=== PATIENT | male | born 1930 | race Caucasian/White ===

== ENCOUNTER 2017-03-13 12:44 | Inpatient (IN) | payer MEDICARE ==
[~2017-03-13] VITALS: Ht 182.9 cm; Wt 73.5 kg
[~2017-03-13 12:44] MED LIST: BAYER CHEWABLE81 MG PO; BENAZEPRIL-HCTZ1 TA4 PO; CYCLOBENZAPRINE10 MG PO; FLOMAX0.4 MG PO; HYDROCODONE-APA1 TAB PO; LASIX20 MG PO; NAMENDA10 MG PO; POTASSIUM99 M1 PO; SEROQUEL25 MG PO; ULTRAM50 MG PO; ZESTORETIC 20-1 EACH PO; ZYRTEC10 MG PO
[2017-03-13 13:37] LABS: BASOPHILS 0.2 % (0-2); EOSINOPHILS 0.3 % (0-7); HEMATOCRIT 41.9 % (42.0-54.0); HEMOGLOBIN 14.1 g/dL (13.5-17.5); IMMATURE GRANULOCYTES 0.2 % (0-5); LYMPHOCYTES 8.3 % (15-50); MCH 32.2 pg (26.0-34.0); MCHC 33.7 g/dL (31.0-37.0); MCV 95.7 fL (80.0-100.0); MEAN PLATELET VOLUME 10.3 fL (7.4-10.4); MONOCYTES 9.4 % (2-11); NEUTROPHILS 81.6 % (40-80); RBC 4.38 10x6/uL (4.20-6.10); WBC 13.1 10x3/uL (4.8-10.8)
[2017-03-13 13:42] LABS: PLATELET COUNT 186 10x3/uL (130-400)
[2017-03-13 14:11] LABS: ALBUMIN 3.9 g/dL (3.4-5.0); ALKALINE PHOSPHATASE 66 U/L (46-116); ALT (SGPT) 24 U/L (10-68); BILIRUBIN - TOTAL 0.97 mg/dL (0.2-1.3); CALC OSMOLALITY 263 mosm/kg (275-300); CALCIUM 8.6 mg/dL (8.5-10.1); CARBON DIOXIDE 27.8 mmol/L (21.0-32.0); CHLORIDE - SERUM 100 mmol/L (98-107); CREATININE - SERUM 1.6 mg/dL (0.6-1.3); GLUCOSE 109 mg/dL (74-106); POTASSIUM - SERUM 3.9 mmol/L (3.5-5.1); PROTEIN - SERUM 7.2 g/dL (6.4-8.2); SODIUM 129 mmol/L (136-145); UREA NITROGEN 23 mg/dL (7-18); eGFR NON AFRICAN AMERICAN 43 mL/min (90-120)
[2017-03-13 14:26] LABS: CHOL - HDL RATIO 4.2 ratio (2.3-4.9); CHOLESTEROL, TOTAL 200 mg/dL (0-200); CKMB 1.2 U/L (0.0-3.6); CREATINE KINASE 74 UL (21-232); HDL CHOLESTEROL 48 mg/dL (32-96); LDL CHOLESTEROL 141 mg/dL (0-100); LDL-HDL RATIO 2.9 ratio (1.5-3.5); TRIGLYCERIDE 57 mg/dL (30-200)
[2017-03-13 14:27] LABS: TROPONIN-I < 0.017 ng/mL (0.000-0.060)
--- NOTE | 2017-03-13 16:00 | NUR ---
RECEIVED TO ROOM 2207 VIA STRETCHER FROM ER. AT BEDSIDE. A/O TO SELF ONLY. REPORTS ADVANCED ALZHEIMERS IN PATIENT. SKIN IS INTACT WITHOUT REDNESS. NO NEEDS NOTED.
[2017-03-13 16:24] VITALS: BP 123/74; BMI 22.0
[2017-03-13] MEDS ORDERED: ATIVAN0.5 MG PO (16:53)
[2017-03-13] MEDS ORDERED: TEMAZEPAM30 MG PO (16:54)
--- NOTE | 2017-03-13 18:22 | NUR ---
COMPLETED CONTRAST WITH 'S ASSISTANCE. NO CHANGES NOTED.
--- NOTE | 2017-03-13 19:30 | NUR ---
REC'D IN BED AWAKE AND ALERT. RESP EVEN AND UNLABORED WITH NO DISTRESS NOTED.CAN EXPRESS NEEDS AND WANTS. ASSESSMENT COMPLETED. AT BEDSIDE. C/L IN REACH AT BEDSIDE.
[2017-03-13 20:00] VITALS: BP 120/60
[2017-03-14] VITALS: BP 111/62
--- NOTE | 2017-03-14 01:14 | NUR ---
RESTING WELL AT THIS TIME WITH AT BEDSIDE. NO C/O NOTED AT THIS TIME. C/L AT BEDSIDE.
--- NOTE | 2017-03-14 02:00 | NUR ---
PT IN BED WITH NO NEEDS AT THIS TIME. VISITOR IS AT THE BEDSIDE. SIDE RAILS X 2. BED IS LOW. CALL LIGHT IN REACH.
[2017-03-14 04:00] VITALS: BP 133/60
[2017-03-14 06:34] LABS: BASOPHILS 0.2 % (0-2); EOSINOPHILS 0.5 % (0-7); HEMATOCRIT 38.4 % (42.0-54.0); HEMOGLOBIN 12.7 g/dL (13.5-17.5); IMMATURE GRANULOCYTES 0.2 % (0-5); LYMPHOCYTES 14.4 % (15-50); MCH 31.7 pg (26.0-34.0); MCHC 33.1 g/dL (31.0-37.0); MCV 95.8 fL (80.0-100.0); MEAN PLATELET VOLUME 9.5 fL (7.4-10.4); MONOCYTES 14.1 % (2-11); NEUTROPHILS 70.6 % (40-80); RBC 4.01 10x6/uL (4.20-6.10); RDW 13.8 % (11.5-14.5); WBC 11.4 10x3/uL (4.8-10.8)
[2017-03-14 06:46] LABS: PLATELET COUNT 146 10x3/uL (130-400)
[2017-03-14 06:59] LABS: ALBUMIN 3.2 g/dL (3.4-5.0); ANION GAP 11.2 mmol/L (8-16); BILIRUBIN - TOTAL 2.18 mg/dL (0.2-1.3); CALCIUM 8.2 mg/dL (8.5-10.1); CARBON DIOXIDE 27.6 mmol/L (21.0-32.0); CREATININE - SERUM 1.5 mg/dL (0.6-1.3); POTASSIUM - SERUM 3.8 mmol/L (3.5-5.1); PROTEIN - SERUM 6.4 g/dL (6.4-8.2); TROPONIN-I 0.025 ng/mL (0.000-0.060)
--- NOTE | 2017-03-14 07:00 | NUR ---
REPORT RECIEVED ASSUMED CARE. PATIENT IN BED WITH IV INTACT. NO COMPLAINTS AT THIS TIME. CALL LIGHT WITHIN REACH. FAMILY AT BEDSIDE.
[2017-03-14 08:17] VITALS: BP 133/55
--- NOTE | 2017-03-14 08:30 | NUR ---
PATIENT IN BED WITH NO COMPLAINTS. ASSESSMENT COMPLETE, VS STABLE. IV INTACT. FAMILY AT BEDSIDE. CALL LIGHT WITHIN REACH.
--- NOTE | 2017-03-14 10:06 | NUR ---
Patient Name: BUTCH PIEDRA Admission Status: ER Accout number: [id number] Admission Date: 03-13-2017 : 1930 Admission Diagnosis: Attending: JIM Current LOS: 1 Anticipated DC Date: Planned Disposition: Home with Hospice Primary Insurance: [employer] PPO [facility] Discharge Planning Comments: CM met with patient to assess discharge planning needs. Patient is a current patient with [facility]. Patient's Lane is at bedside stated that he is in late stages of lymphoma with Alzheimer's. The patient has oxygen at night, walker and wheelchair. Patient plans to return home with Hospice [facility]. PCP: Royal Nagel on [address] [phone] Media Senior Recruiter: Moni Briggs * Is the patient Alert and Oriented? Yes 0 * How many steps to enter\exit or inside your home? 0 0 * PCP ROYAL 0 * [facility] 0 * Preadmission Environment Home with Family 0 * ADLs Total Dependent 0 * Equipment Oxygen Walker Wheelchair 0 * List name and contact numbers for known caregivers / representatives who currently or will assist patient after discharge: LANE () [phone] 0 * Community resources currently utilized [facility]osp[facility] 0 * Please name any agencies selected above. [facility] 0 * Additional services required to return to the preadmission environment? No 0 * Can the patient safely return to the preadmission environment? Yes 0 * Has this patient been hospitalized within the prior 30 days at any hospital? No 0 Grand Total: 0
--- NOTE | 2017-03-14 11:00 | NUR ---
PATIENT SITTING UP IN WC AT THIS TIME. FAMILY AT SIDE. CALL LIGHT WITHIN REACH.
[2017-03-14 12:03] VITALS: BP 110/67
[2017-03-14 12:54] LABS: APPEARANCE CLEAR (CLEAR); BACTERIA FEW /hpf (NONE SEEN); BILIRUBIN NEGATIVE (NEGATIVE); COLOR YELLOW (YELLOW); EPITHELIAL CELLS RARE /hpf (0-5); GLUCOSE NEGATIVE (NEGATIVE); KETONE SMALL mg/dL (NEGATIVE); LEUKOCYTE ESTERASE NEGATIVE (NEGATIVE); NITRITE NEGATIVE (NEGATIVE); PROTEIN NEGATIVE (NEGATIVE); RED CELLS - URINE 0-5 /hpf (0-5); UROBILINOGEN NORMAL (NORMAL)
[2017-03-14 14:42] VITALS: Ht 182.9 cm; Wt 73.5 kg
--- NOTE | 2017-03-14 15:04 | CN ---
PATIENT NAME:BUTCH PIEDRA MEDICAL RECORD: [id number] : [birth year] LOCATION:D.[facility] ADMIT DATE: 03/13/17 ACCOUNT: [id number] CONSULTING PHYSICIAN: ZHANNA PRADO MD REFERRING PHYSICIAN: RUBY ALVARADO MD DATE OF CONSULTATION: 03/13/2017 CHIEF COMPLAINT: Chest pain. HISTORY OF PRESENT ILLNESS: The patient has dementia and can give me almost no history. His states that he is having abdominal pain and he denies this and says that he is having chest pain. I am unable to really get any review of systems from him due to his dementia. Symptoms presented 1 hour prior to presentation to the Emergency Room. It is unknown what aggravates and what alleviates the symptoms as they are difficult to characterize. REVIEW OF SYSTEMS: From the chart. It is really unobtainable due to the patient's impaired ability to communicate. He has been having chest pain. He currently denies abdominal pain. The patient does have dementia. PAST MEDICAL AND SURGICAL HISTORY: Dementia, Alzheimer disease, altered mental status, fall, closed fracture of the leg, DVT, postop wound infection of the right ankle and hypertension. FAMILY HISTORY: Has been reviewed and is not pertinent. SOCIAL HISTORY: Negative for alcohol or tobacco use. HOME MEDICINES: Lasix, lisinopril, Flomax, Namenda, Megace and vitamin B12. ALLERGIES: PENICILLIN. KUB have been reviewed. I am going to order a CT of the abdomen and pelvis. PHYSICAL EXAMINATION: GENERAL: The patient does not appear acutely ill. He does not appear chronically ill. VITAL SIGNS: Reviewed. EARS: External ears appear normal. EYES: Extraocular movements are intact. NECK: Trachea is midline. CHEST: No intercostal retractions. PULMONARY: Nonlabored, no stridor. ABDOMEN: Really nontender. GENITOURINARY: No incarcerated inguinal hernias. PSYCHIATRIC: Anxious affect. NEUROLOGIC: There is evidence of loss of higher cortical function. He does not follow commands very well. BACK: No thoracic kyphosis. LYMPHATICS: No lymphangitic streaking of the exposed extremities. KUB has been examined. It is, I think, pretty equivocal. IMPRESSION: Chest pain, although been consulted for a possible small-bowel obstruction. CONSULT REPORT [id number] BUTCH PIEDRA PLAN: Serial abdominal examinations. CT of the abdomen and pelvis with IV and oral contrast. TRANSINT:[id number] Voice Confirmation ID: [id number] DOCUMENT ID: [id number] ZHANNA PRADO MD at 1504 CC: [id number] DICTATION DATE: 03/13/171709 SCHOOL OFFICE ASSISTANT: 03/13/172002 ADM IN [facility] [address] [id number]
--- NOTE | 2017-03-14 15:51 | NUR ---
PATIENT IN BED WITH NO COMPLAINTS OF PAIN. IV INTACT. CALL LIGHT WITHIN REACH.
[2017-03-14 16:14] VITALS: BP 123/58
[2017-03-14 20:00] VITALS: BP 135/69
[2017-03-15] VITALS (10 sets, daily range): BP systolic 109–143; BP diastolic 52–76
--- NOTE | 2017-03-15 01:35 | NUR ---
APPLIED SCDS TO BILATERAL LEGS
[2017-03-15 05:48] LABS: BASOPHILS 0.3 % (0-2); EOSINOPHILS 2.1 % (0-7); HEMATOCRIT 35.7 % (42.0-54.0); HEMOGLOBIN 12.2 g/dL (13.5-17.5); IMMATURE GRANULOCYTES 0.1 % (0-5); LYMPHOCYTES 21.1 % (15-50); MCH 32.5 pg (26.0-34.0); MCHC 34.2 g/dL (31.0-37.0); MCV 95.2 fL (80.0-100.0); MEAN PLATELET VOLUME 9.6 fL (7.4-10.4); MONOCYTES 11.1 % (2-11); NEUTROPHILS 65.3 % (40-80); PLATELET COUNT 141 10x3/uL (130-400); RBC 3.75 10x6/uL (4.20-6.10); RDW 13.9 % (11.5-14.5); WBC 7.7 10x3/uL (4.8-10.8)
[2017-03-15 06:13] LABS: ALBUMIN 2.9 g/dL (3.4-5.0); ANION GAP 12.9 mmol/L (8-16); BILIRUBIN - TOTAL 1.4 mg/dL (0.2-1.3); CARBON DIOXIDE 22.5 mmol/L (21.0-32.0); CREATININE - SERUM 1.4 mg/dL (0.6-1.3); POTASSIUM - SERUM 3.4 mmol/L (3.5-5.1); PROTEIN - SERUM 5.8 g/dL (6.4-8.2)
--- NOTE | 2017-03-15 08:03 | NUR ---
SCHEDULED MEDICATIONS ADMINISTERED AT THIS TIME. PT REMAINS NPO FOR SURGERY. AT BEDSIDE. ASSESSMENT PERFORMED PER FLOWSHEET. CALL LIGHT IN REACH. WILL CONTINUE WITH PLAN OF CARE.
--- NOTE | 2017-03-15 12:05 | NUR ---
22G IV SITED TO PT'S RIGHT FOREARM X1 ATTEMPT. EXISTING IV LEAKING AROUND INSERTION SITE. REMOVED WITH CATH TIP INTACT. FAMILY REMAINS AT BEDSIDE AND PT REMAINS NPO FOR SURGERY. CALL LIGHT IN REACH, WILL CONTINUE WITH PLAN OF CARE.
--- NOTE | 2017-03-15 13:00 | HP ---
PATIENT: BUTCH PIEDRA MEDICAL RECORD: [id number] ACCOUNT: [id number] LOCATION:D.MS [place] : [birth year] ADMISSION DATE: 03/13/17 HISTORY AND PHYSICAL EXAMINATION CHIEF COMPLAINT: Chest pain. I have personally reviewed the CT scan report. The patient has gallstones. He does not have a bowel obstruction. I think it is very likely that the gallstones are causing his chest pain. The risks, possible complications, alternatives to laparoscopic cholecystectomy were explained to the patient and his family. They elected to proceed. The discussion specifically included, but was not limited to, bleeding requiring an emergency reoperation, infection, intestinal injury as well as common bile duct injury. Nothing aggravates. Nothing alleviates. Symptoms are nonradiating except up into the chest. An abdominal ultrasound is pending. REVIEW OF SYSTEMS: Currently, no nausea and vomiting, no fever or chills, no shortness of breath, no headache. Positive for chest pain. Review of systems is negative other than as is described above. For current medications, past medical and surgical history, social history and family history, please see the chart. PHYSICAL EXAMINATION: GENERAL: The patient does not appear acutely ill. He does not appear chronically ill. VITAL SIGNS: Reviewed. EARS: External ears appear normal. EYES: Extraocular movements are intact. NECK: Trachea is midline. CHEST: No intercostal retractions. PULMONARY: Nonlabored, no stridor. ABDOMEN: Nontender. EXTREMITIES: No peripheral cyanosis. INTEGUMENT: No rash, no ulcerations. PSYCHIATRIC: Normal affect. NEUROLOGIC: There is evidence of loss of higher cortical function. BACK: No thoracic kyphosis. LYMPHATIC: No lymphangitic streaking of the exposed extremities. IMPRESSION: Chest pain likely due to symptomatic gallstones. PLAN: Continue to hold the Eliquis that he has been on. Today is Tuesday. His last dose of Eliquis was on Tuesday. I will plan for laparoscopic cholecystectomy, intraoperative cholangiography and possible liver biopsy tomorrow. TRANSINT:[id number] Voice Confirmation ID: [id number] DOCUMENT ID: [id number] HISTORY AND PHYSICAL [id number] TADEORANDEEZHANNA LOCKWOOD MD at 1300 CC: [id number] DICTATION DATE: 03/14/17 9009 PETROPHYSICIST: 03/15/17 0033 ADM IN [facility] [address] [id number]
--- NOTE | 2017-03-15 13:17 | NUR ---
PRE OPERATIVE MEDICATIONS ADMINISTERED AT THIS TIME.
--- NOTE | 2017-03-15 14:44 | NUR ---
TAKEN TO SURGERY AT THIS TIME. WILL MONITOR PT WHEN HE RETURNS.
--- NOTE | 2017-03-15 17:25 | NUR ---
REPORT RECEIVED FROM SABINO GONZALES IN PACU AT THIS TIME.
--- NOTE | 2017-03-15 17:38 | NUR ---
BACK FROM SURGERY AT THIS TIME. VITAL SIGNS STABLE. WILL CONTINUE WITH PLAN OF CARE.
--- NOTE | 2017-03-15 17:48 | NUR ---
ATTEMPTED TO CALL PT'S X2 ATTEMPTS.
--- NOTE | 2017-03-15 17:53 | NUR ---
PRN NORCO ADMINISTERED PER ORDER FOR PAIN. FOUND PT'S AND DAUGHTER IN WAITING ROOM AND LET THEM KNOW PT WAS BACK TO ROOM FROM SURGERY.
[2017-03-16] VITALS: BP 112/61
[2017-03-16 06:22] LABS: BASOPHILS 0.1 % (0-2); EOSINOPHILS 0 % (0-7); HEMATOCRIT 36.8 % (42.0-54.0); HEMOGLOBIN 12.3 g/dL (13.5-17.5); IMMATURE GRANULOCYTES 0.2 % (0-5); LYMPHOCYTES 7.1 % (15-50); MCH 31.8 pg (26.0-34.0); MCHC 33.4 g/dL (31.0-37.0); MCV 95.1 fL (80.0-100.0); MEAN PLATELET VOLUME 9.5 fL (7.4-10.4); MONOCYTES 6.7 % (2-11); NEUTROPHILS 85.9 % (40-80); PLATELET COUNT 147 10x3/uL (130-400); RBC 3.87 10x6/uL (4.20-6.10); RDW 13.8 % (11.5-14.5)
[2017-03-16 06:23] LABS: WBC 13.5 10x3/uL (4.8-10.8)
[2017-03-16 06:49] LABS: ALBUMIN 2.8 g/dL (3.4-5.0); ANION GAP 15.8 mmol/L (8-16); BILIRUBIN - TOTAL 0.8 mg/dL (0.2-1.3); CALCIUM 7.9 mg/dL (8.5-10.1); CARBON DIOXIDE 20.6 mmol/L (21.0-32.0); CREATININE - SERUM 1.6 mg/dL (0.6-1.3); POTASSIUM - SERUM 4.4 mmol/L (3.5-5.1); PROTEIN - SERUM 5.9 g/dL (6.4-8.2)
--- NOTE | 2017-03-16 08:39 | NUR ---
SCHEDULED MEDICATIONS ADMINISTERED AT THIS TIME. ASSESSMENT PERFORMED PER FLOWSHEET. RADHA MAT IN USE AND SCD'S ON. AT BEDSIDE. WILL CONTINUE WITH PLAN OF CARE.
[2017-03-16 08:42] VITALS: BP 123/65
[2017-03-16 12:16] VITALS: BP 99/52
[2017-03-16 16:19] VITALS: BP 110/49
[2017-03-16 20:00] VITALS: BP 99/41
--- NOTE | 2017-03-16 20:00 | NUR ---
PATIENT RESTING IN BED WITH AT BEDSIDE AND DENIES NEEDS AT THIS TIME. ASSESSMENT COMPLETED. BED IN LOWEST POSITION AND CALL LIGHT WITHIN REACH. ENCOURAGED THE PATIENT AND HIS TO CALL IF THEY HAVE NEEDS.
[2017-03-16 23:56] VITALS: BP 105/41
--- NOTE | 2017-03-17 04:37 | NUR ---
LARS HERNANDEZ IN REGARDS TO PATIENT BECOMING INCREASINGLY AGITATED, HITTING STAFF AND , AND TRYING TO CLIMB OUT OF BED.
--- NOTE | 2017-03-17 04:57 | NUR ---
LARS HERNANDEZ IN REGARDS TO PATIENT BECOMING INCREASINGLY AGITATED, HITTING STAFF AND , AND TRYING TO CLIMB OUT OF BED.
[2017-03-17 05:39] LABS: BASOPHILS 0.2 % (0-2); EOSINOPHILS 1.4 % (0-7); HEMATOCRIT 35.6 % (42.0-54.0); HEMOGLOBIN 11.9 g/dL (13.5-17.5); IMMATURE GRANULOCYTES 0.1 % (0-5); LYMPHOCYTES 19.3 % (15-50); MCH 31.6 pg (26.0-34.0); MCHC 33.4 g/dL (31.0-37.0); MCV 94.7 fL (80.0-100.0); MEAN PLATELET VOLUME 9.4 fL (7.4-10.4); MONOCYTES 11.1 % (2-11); NEUTROPHILS 67.9 % (40-80); PLATELET COUNT 138 10x3/uL (130-400); RBC 3.76 10x6/uL (4.20-6.10); RDW 14.1 % (11.5-14.5); WBC 10.3 10x3/uL (4.8-10.8)
[2017-03-17 06:03] LABS: ANION GAP 13.2 mmol/L (8-16); BILIRUBIN - TOTAL 1.3 mg/dL (0.2-1.3); CARBON DIOXIDE 23.6 mmol/L (21.0-32.0); CREATININE - SERUM 1.5 mg/dL (0.6-1.3); POTASSIUM - SERUM 3.8 mmol/L (3.5-5.1); PROTEIN - SERUM 6.1 g/dL (6.4-8.2)
--- NOTE | 2017-03-17 07:52 | NUR ---
AWAKE AND ALERT. ORIENTED TO SELF ONLY. AT BEDSIDE. LUNGS ARE CLEAR BILATERALLY, SKIN IS INTACT WITHOUT REDNESS EXCEPT 5 SMALL INSERTION SITES TO ABDOMEN WHICH HAVE DRY INTACT DRESSINGS IN PLACE. SL TO RIGHT AC IS PATENT WITHOUT REDNESS AT INSERTION SITE. DENIES NEEDS.
--- NOTE | 2017-03-17 09:00 | NUR ---
TOOK AM MEDS FOR NURSE. REFUSED TO EAT ANY BREAKFAST. ATE ALMOST ALL OF [place] FOR STAFF. WILL CONTINUE TO MONITOR.
--- NOTE | 2017-03-17 09:08 | OP ---
PATIENT NAME: BUTCH PIEDRA MEDICAL RECORD: [id number] :[birth year] LOCATION:D.MS [place] ADMISSION DATE:03/13/17 SURGEON: ZHANNA PRADO MD DATE OF OPERATION: 03/15/2017 PREOPERATIVE DIAGNOSIS: Symptomatic gallstones. POSTOPERATIVE DIAGNOSES: Symptomatic gallstones, adhesions to the gallbladder also hepatomegaly. PROCEDURES: 1. Laparoscopic cholecystectomy. 2. Intraoperative cholangiography without immediate surgeon interpretation. 3. An 14-gauge core needle liver biopsy. SURGEON: Zhanna Prado MD CAT SKINNER: None. BLOOD LOSS: Minimal. ANESTHESIA: General. COMPLICATIONS: None. The risks, possible complications and alternatives to procedure were explained to the patient. He elects to proceed. OPERATIVE COURSE: The patient was conveyed to the operating room electively on 03/15/2017. General anesthesia was induced by the anesthesia staff. The abdomen was sterilely prepped and draped. A small skin heavenly was accomplished in the left upper quadrant. Through the skin heavenly, a Veress needle was inserted into the peritoneal cavity. CO2 insufflation was begun. Once a sufficient pneumoperitoneum had been achieved, an incision was accomplished at the umbilicus. A 12-mm trocar was inserted here. Under direct internal vision utilizing the television camera, a 5-mm trocar was inserted through an incision in the epigastrium. Another 5-mm trocar was inserted through the incision in the right upper quadrant. Another 5-mm trocar was inserted through an incision far laterally in the right upper quadrant. During insertion of the Veress needle and all trocars, there appeared to have been no injury to the bowels, any intraperitoneal or retroperitoneal structures. The indication for the liver biopsy was hepatomegaly. Under laparoscopic guidance, I percutaneously accessed the right upper quadrant utilizing a 14 gauge core biopsy device. Cores were obtained over the convexity of the liver. Biopsy sites were made hemostatic with electrocautery. I then grasped the gallbladder. It appeared chronically inflamed. It may have been subacutely inflamed as well. I advanced the cholangiogram trocar. I punctured the fundus of gallbladder. I aspirated bile. I then injected dye. Real time cholangiographic images were obtained and are sent to the radiologist for interpretation. The gallbladder was grasped. Adhesions were taken down bluntly. Blunt dissection was begun on the triangle of Calot. One cystic artery and one cystic OPERATIVE REPORT [id number] [facility] duct were identified. These were clipped multiply and divided between clips. The gallbladder was then excised from its bed in the liver. It was placed within an bag retrieval device and was withdrawn through the umbilical fascia defect. The 12-mm trocar was replaced and the abdomen reinsufflated. I irrigated and aspirated in the right upper quadrant. There was no bleeding even at low pressure of 8. Jonnathan was added to the gallbladder bed for additional hemostasis. All the trocars were removed and the abdomen desufflated. The umbilical fascia was closed with a horizontal mattress 0 Vicryl suture. The umbilical skin was approximated with interrupted 4-0 Vicryl Rapide sutures. The other skin incisions were closed with interrupted intracuticular 3-0 Vicryls. Benzoin and Steri-Strips were applied. The patient was then extubated and conveyed to the post-anesthesia care unit where he was in stable condition. I hope that we can dismiss him home tomorrow. TRANSINT:[id number] Voice Confirmation ID: [id number] DOCUMENT ID: [id number] ZHANNA PRADO MD at 0908 CC: RUBY ALVARADO MD and DAVIS MAYNARD [id number] DICTATION DATE: 03/15/17 1657 RENEWABLE ENERGY PROJECT MANAGER: 03/15/17 2133 ADM IN [id number] [place] [address]
--- NOTE | 2017-03-17 12:30 | NUR ---
LUNCH SERVED IN ROOM. ATE ONLLY A FEW BITES. DENIES NEED.
[2017-03-17 13:28] VITALS: BP 117/45
--- NOTE | 2017-03-17 14:14 | NUR ---
IV TO RIGHT AC LEAKING. RESITED TO RIGHT FOREARM AFTER ONE ATTEMPT IWTH 20G. OLD IV D/C WITH CATHETER INTEACT.
[2017-03-17 18:10] VITALS: BP 128/62
--- NOTE | 2017-03-17 19:29 | NUR ---
ATE OVER HALF OF SUPPER. AT BEDSIDE. NO CHANGES NOTED. DENIES NEEDS.
[2017-03-17 20:00] VITALS: BP 145/67
--- NOTE | 2017-03-17 21:32 | NUR ---
PATIENT RESTING IN BED WITH AT BEDSIDE. MEDS ADMINISTERED PER ORDERS AND ASSESSMENT COMPLETED. BED IN LOWEST POSITION, CALL LIGHT WITHIN REACH, AND RADHA ALARM ON. ENCOURAGED PATIENT TO CALL IF HE HAS FURTHER NEEDS.
[2017-03-17 23:37] VITALS: BP 94/52
[2017-03-18 05:15] LABS: BASOPHILS 0.2 % (0-2); EOSINOPHILS 3.4 % (0-7); HEMATOCRIT 34.6 % (42.0-54.0); HEMOGLOBIN 11.6 g/dL (13.5-17.5); IMMATURE GRANULOCYTES 0.4 % (0-5); LYMPHOCYTES 21.2 % (15-50); MCH 31.6 pg (26.0-34.0); MCHC 33.5 g/dL (31.0-37.0); MCV 94.3 fL (80.0-100.0); MEAN PLATELET VOLUME 9.6 fL (7.4-10.4); MONOCYTES 14.1 % (2-11); NEUTROPHILS 60.7 % (40-80); PLATELET COUNT 136 10x3/uL (130-400); RBC 3.67 10x6/uL (4.20-6.10); RDW 13.9 % (11.5-14.5)
[2017-03-18 05:33] LABS: ALBUMIN 2.7 g/dL (3.4-5.0); ANION GAP 11.4 mmol/L (8-16); CARBON DIOXIDE 25.2 mmol/L (21.0-32.0); CREATININE - SERUM 1.4 mg/dL (0.6-1.3); POTASSIUM - SERUM 3.6 mmol/L (3.5-5.1); PROTEIN - SERUM 5.7 g/dL (6.4-8.2)
--- NOTE | 2017-03-18 05:33 | NUR ---
PATIENT HAS TAKEN HIS TELE UNIT OFF SEVERAL TIMES TONIGHT AND IT APPEARS TO BE CAUSING INCREASING AGITATION. REQUESTED THAT IT IS NOT PUT BACK ON HIM AT THIS TIME.
--- NOTE | 2017-03-18 07:56 | NUR ---
PATIENT IN BED WITH NO COMPLAINTS OR SIGNS OF DISTRESS AT THIS TIME. AT SIDE. CLEANED PATIENT UP. IV INTACT. CALL LIGHT WITHIN REACH.
[2017-03-18 09:23] VITALS: BP 142/62
[2017-03-18] MEDS ORDERED: MACROBID100 MG PO (11:06)
[2017-03-18] MEDS ORDERED: COLACE100 MG PO (11:06)
[2017-03-18] MEDS ORDERED: FLORAJEN3 CAPS460 MG PO (11:06)
--- NOTE | 2017-03-18 15:16 | NUR ---
PATIENT DISCHARGING TODAY BACK TO [facility], CALLED AND NOTIFIED THEM AND FAXED DISCHARGE INFO TO THEM. PATIENT WILL BE TRANSPORTED VIA EMS
--- NOTE | 2017-03-18 15:30 | NUR ---
PATIENT AND RECIEVED DC INSTRUCTIONS. NO QUESTIONS AT THIS TIME. VERBALIZED UNDERSTANDING. IV REMOVED WITH CATH TIP INTACT. CALLED AMBULANCE FOR TRANSPORTATION. CALL LIGHT WITHIN REACH.
== END 2017-03-18 19:43 | disposition home health service (06) | DRG 418 ==
LOC: D.ER 12:44 → D.MS 15:56
PROVIDERS: Emergency Medicine; Family Medicine; Surgery; ADMIT Emergency Medicine
PROC: BF121ZZ Fluoroscopy of Gallbladder using Low Osmolar Contrast (ICD-10-PCS; 2017-03-15)
PROC: 0FB03ZX Excision of Liver, Percutaneous Approach, Diagnostic (ICD-10-PCS; 2017-03-15)
PROC: 0FT44ZZ Resection of Gallbladder, Percutaneous Endoscopic Approach (ICD-10-PCS; principal; 2017-03-15 11:15)
DX: K80.80 Other cholelithiasis without obstruction (principal); E87.1 Hypo-osmolality and hyponatremia; K56.60 Unspecified intestinal obstruction; C85.90 Non-Hodgkin lymphoma, unspecified, unspecified site; N39.0 Urinary tract infection, site not specified; G30.9 Alzheimer's disease, unspecified; F02.80 Dementia in other diseases classified elsewhere, unspecified severity, without behavioral disturbance, psychotic disturbance, mood disturbance, and anxiety; I12.9 Hypertensive chronic kidney disease with stage 1 through stage 4 chronic kidney disease, or unspecified chronic kidney disease; N18.9 Chronic kidney disease, unspecified; K82.8 Other specified diseases of gallbladder; R16.0 Hepatomegaly, not elsewhere classified

== ENCOUNTER 2017-04-21 22:47 | Emergency (ER) | payer MEDICARE ==
[2017-03-14 14:42] VITALS: BMI 21.9
[~2017-04-21 22:47] MED LIST changes: +ATIVAN0.5 MG PO; +COLACE100 MG PO; +FLORAJEN3 CAPS460 MG PO; +MACROBID100 MG PO; +TEMAZEPAM30 MG PO
== END 2017-04-22 00:57 | disposition home or self-care (01) ==
LOC: D.ER 22:47
DX: I82.401 Acute embolism and thrombosis of unspecified deep veins of right lower extremity (principal)

== ENCOUNTER 2017-10-11 14:39 | Observation (INO) | payer MEDICARE ==
[~2017-10-11] VITALS: Ht 182.9 cm; Wt 67.1 kg
[2017-10-11 15:12] LABS: BASOPHILS 0.2 % (0-2); EOSINOPHILS 0.1 % (0-7); HEMATOCRIT 30.7 % (42.0-54.0); HEMOGLOBIN 9.8 g/dL (13.5-17.5); IMMATURE GRANULOCYTES 0.1 % (0-5); LYMPHOCYTES 6.9 % (15-50); MCH 30.2 pg (26.0-34.0); MCHC 31.9 g/dL (31.0-37.0); MCV 94.8 fL (80.0-100.0); MEAN PLATELET VOLUME 9.4 fL (7.4-10.4); MONOCYTES 12.4 % (2-11); NEUTROPHILS 80.3 % (40-80); PLATELET COUNT 169 10x3/uL (130-400); RBC 3.24 10x6/uL (4.20-6.10); RDW 14.7 % (11.5-14.5); WBC 10.9 10x3/uL (4.8-10.8)
[2017-10-11 15:16] LABS: INR 4.38 (0.85-1.17); PROTIME 40.9 SECONDS (11.6-15.0)
[2017-10-11 15:17] LABS: APTT 93.9 SECONDS (22.8-39.4)
[2017-10-11 15:38] LABS: ALBUMIN 3.3 g/dL (3.4-5.0); ANION GAP 14.8 mmol/L (8-16); BILIRUBIN - TOTAL 1.4 mg/dL (0.2-1.3); CALCIUM 8.7 mg/dL (8.5-10.1); CARBON DIOXIDE 26.5 mmol/L (21.0-32.0); CREATININE - SERUM 1.3 mg/dL (0.6-1.3); POTASSIUM - SERUM 4.3 mmol/L (3.5-5.1); PROTEIN - SERUM 6.2 g/dL (6.4-8.2)
[2017-10-11 17:16] LABS: APPEARANCE CLEAR (CLEAR); BILIRUBIN NEGATIVE (NEGATIVE); COLOR DK YELLOW (YELLOW); GLUCOSE NEGATIVE (NEGATIVE); KETONE NEGATIVE (NEGATIVE); NITRITE NEGATIVE (NEGATIVE); PROTEIN NEGATIVE (NEGATIVE); UROBILINOGEN NORMAL (NORMAL)
[2017-10-12 00:22] VITALS: BP 127/46; BMI 20.1
[2017-10-12] MEDS ORDERED: TYLENOL650 MG RC (02:45)
[2017-10-12] MEDS ORDERED: BISCOLAX10 MG/SUPP RC (02:46)
[2017-10-12] MEDS ORDERED: CYPROHEPTADINE H4 MG PO (02:47)
[2017-10-12] MEDS ORDERED: SALINE NASAL SP45 ML NS (02:48)
[2017-10-12] MEDS ORDERED: MUCUS RELIEF400 MG PO (02:49)
[2017-10-12] MEDS ORDERED: HALDOL ORA30 MG/15 M PO (02:51)
[2017-10-12] MEDS ORDERED: HALDOL5 MG PO (02:52)
[2017-10-12] MEDS ORDERED: HYDROCODON-ACE1 EAC7 PO (02:53)
[2017-10-12] MEDS ORDERED: JANTOVEN5 MG PO (02:57)
[2017-10-12] MEDS ORDERED: ED-SPAZ0.125 MG PO (02:57)
[2017-10-12] MEDS ORDERED: CLARITIN 10 MG10 MG PO (02:58)
[2017-10-12] MEDS ORDERED: ATIVAN1 MG PO (02:59)
[2017-10-12] MEDS ORDERED: MORPHINE S20 MG/5 ML (03:00)
[2017-10-12] MEDS ORDERED: MIRALAX17 GM PO (03:04)
[2017-10-12] MEDS ORDERED: SEROQUEL100 MG PO (03:06)
[2017-10-12] MEDS ORDERED: COMPAZINE10 MG PO (03:09)
[2017-10-12 08:39] VITALS: BP 125/50
[2017-10-12 10:40] VITALS: Ht 182.9 cm; Wt 67.1 kg
== END 2017-10-12 14:56 | disposition hospice, inpatient (51) ==
LOC: D.ER 14:39 → D.EDHOLD 18:39 → D.MS 18:39 → OBSVTIME 18:39 → D.M2 18:39 → D.MS 19:22 → D.M2 10-12 00:04
PROVIDERS: Family Medicine
DX: F03.90 Unspecified dementia, unspecified severity, without behavioral disturbance, psychotic disturbance, mood disturbance, and anxiety (principal); I12.9 Hypertensive chronic kidney disease with stage 1 through stage 4 chronic kidney disease, or unspecified chronic kidney disease; N18.9 Chronic kidney disease, unspecified; C85.90 Non-Hodgkin lymphoma, unspecified, unspecified site; I62.03 Nontraumatic chronic subdural hemorrhage